=== PATIENT | female | born 1955 | race American Indian/Alaskan Native ===

== ENCOUNTER 2021-04-25 13:04 | Inpatient (IN) | payer MEDICARE ==
--- NOTE | 2021-04-25 18:21 | XRay Report ---
CHEST 1 VIEW INDICATION / CLINICAL INFORMATION: sob...Pt. arrived EMS from dialysis for Htn. Would not dialyze her due to BP. COMPARISON: None available. FINDINGS: SUPPORT DEVICES: None. HEART / MEDIASTINUM: Cardiac silhouette size is upper limits of normal to mildly enlarged. LUNGS / PLEURA: There is mild pulmonary vascular congestion without overt interstitial pulmonary jonatan a. There is mild pulmonary opacity in both bases, nonspecific. It is unclear if this is atelectasis o r underlying pulmonary opacities. No pleural effusion. No pneumothorax. ADDITIONAL FINDINGS: No significant additional findings. IMPRESSION: 1. Pulmonary vascular congestion is present, without sharif interstitial pulmonary edema. 2. Mild bibasilar parenchymal disease, nonspecific with differential diagnosis of atelectasis versus pneumonia. Please correlate clinically. Signer Name: Harmony Chen MD Signed: 04/25/2021 6:17 PM Workstation Name: [id number]
[2021-04-25 18:28] LABS: Eosinophils # (Auto) 0.1 K/mm3 (0.0-0.4); Eosinophils % (Auto) 1.7 % (0.0-4.3); Hematocrit 34.7 % (30.3-42.9); Hemoglobin 11.4 gm/dl (10.1-14.3); Lymphocytes # (Auto) 1.7 K/mm3 (1.2-5.4); Lymphocytes % (Auto) 30.3 % (13.4-35.0); Mean Corpuscular HGB Conc 33 % (30-34); Mean Corpuscular Volume 100 fl (79-97); Monocytes # (Auto) 0.5 K/mm3 (0.0-0.8); Monocytes % (Auto) 8.8 % (0.0-7.3); Platelet Count 155 K/mm3 (140-440); Red Blood Count 3.47 M/mm3 (3.65-5.03); Red Cell Distribution Width 12.4 % (13.2-15.2)
[2021-04-25 18:33] LABS: Calcium 9.5 mg/dL (8.4-10.2)
[2021-04-25] MEDS ORDERED: cloNIDine 0.2 MG TAB PO ONE (19:06)
--- NOTE | 2021-04-25 19:08 | Emergency Department Report ---
ED General Adult HPI - General Chief complaint: High BP Stated complaint: HIGH BLOOD PRESSURE Time Seen by Provider: 04/25/21 17:14 Source: patient Mode of arrival: Stretcher Limitations: No Limitations - History of Present Illness Initial comments: 66-year-old female, history of diabetes, ESRD, hypertension, bipolar, schizophrenia, blindness, presents to ED with elevated blood pressure. Patient was sent to ED from dialysis because her blood pressure was too high to be dialyzed. Patient denies any difficulty breathing. Patient is a somewhat poor historian. Seems to be slightly confused, stating she was dialyzed on yesterday. Patient is on Saturday//Saturday dialysis schedule, which will be patient was likely last dialyzed 3 days ago on Saturday. Per charge nurse who received report, EMS reported that this is patient's baseline mental status. No previous visits to this hospital. -: unknown Quality: other (Painless) Consistency: constant Improves with: none Worsens with: none Associated Symptoms: denies other symptoms. denies: nausea/vomiting, shortness of breath Treatments Prior to Arrival: none - Related Data Home Medications Medication Instructions Recorded Confirmed Last Taken Atorvastatin Calcium [Lipitor] 80 mg PO BID 04/25/21 04/25/21 Unknown QUEtiapine [SEROquel] 25 mg PO TID 04/25/21 04/25/21 Unknown carvediloL [Coreg] 12.5 mg PO BID 04/25/21 04/25/21 Unknown risperiDONE [RisperDAL] 1 mg PO BID 04/25/21 04/25/21 Unknown traZODone [Desyrel] 50 mg PO QHS 04/25/21 04/25/21 Unknown Allergies Allergy/AdvReac Type Severity Reaction Status Date / Time No Known Allergies Allergy Unverified 04/25/21 19:02 ED Review of Systems ROS: Stated complaint: HIGH BLOOD PRESSURE Other details as noted in HPI Comment: All other systems reviewed and negative Respiratory: denies: shortness of breath Gastrointestinal: denies: nausea, vomiting ED Past Medical Hx - Social History Smoking Status: Never Smoker - Medications Home Medications: Home Medications Medication Instructions Recorded Confirmed Last Taken Type Atorvastatin Calcium [Lipitor] 80 mg PO BID 04/25/21 04/25/21 Unknown History QUEtiapine [SEROquel] 25 mg PO TID 04/25/21 04/25/21 Unknown History carvediloL [Coreg] 12.5 mg PO BID 04/25/21 04/25/21 Unknown History risperiDONE [RisperDAL] 1 mg PO BID 04/25/21 04/25/21 Unknown History traZODone [Desyrel] 50 mg PO QHS 04/25/21 04/25/21 Unknown History ED Physical Exam - General Limitations: No Limitations General appearance: alert, in no apparent distress - Head Head exam: Present: atraumatic, normocephalic - Eye Eye exam: Present: normal appearance, EOMI - ENT ENT exam: Present: mucous membranes moist - Neck Neck exam: Present: normal inspection - Respiratory Respiratory exam: Present: normal lung sounds bilaterally. Absent: respiratory distress - Cardiovascular Cardiovascular Exam: Present: regular rate, normal rhythm - GI/Abdominal GI/Abdominal exam: Present: soft. Absent: distended, tenderness - Extremities Exam Extremities exam: Present: normal inspection - Neurological Exam Neurological exam: Present: alert. Absent: oriented X3 (oriented to slef and place) - Psychiatric Psychiatric exam: Present: normal affect, normal mood - Skin Skin exam: Present: warm, dry, intact, normal color ED Course Vital Signs 04/25/21 04/25/21 04/25/21 17:01 17:50 17:52 Temperature Pulse Rate 70 Respiratory 16 Rate Blood Pressure 204/81 Blood Pressure 216/107 [Right] O2 Sat by Pulse 100 100 99 Oximetry 04/25/21 04/25/21 04/25/21 17:54 18:00 18:59 Temperature 97.8 F Pulse Rate Respiratory Rate Blood Pressure 188/78 Blood Pressure [Right] O2 Sat by Pulse 100 100 Oximetry 04/25/21 04/25/21 04/25/21 20:00 20:50 22:00 Temperature Pulse Rate 74 69 Respiratory 12 Rate Blood Pressure 221/94 230/98 181/86 Blood Pressure [Right] O2 Sat by Pulse 99 99 Oximetry 04/26/21 00:00 Temperature Pulse Rate Respiratory Rate Blood Pressure 162/79 Blood Pressure [Right] O2 Sat by Pulse 100 Oximetry - Reevaluation(s) Reevaluation #1: 04/25/21 20:58 Spoke with patient's daughter, Gladis Power ([phone]). States pt takes trazodone, quetiapine, risperidone, atorvastatin, and carvedilol. Will give a dose of trazodone at this time as patient is slightly agitated. - Consultations Consultation #1: 04/25/21 19:[address] Vasquez, corporate compliance manager. States no need to treat K of 5.5, will dialyze patient in the morning. ED Medical Decision Making - Lab Data Result diagrams: 04/25/21 17:41 04/25/21 17:41 - Radiology Data Radiology results: report reviewed, image reviewed - Medical Decision Making 66-year-old female presents from dialysis center for elevated blood pressure. States they are unable to dialyze patient. Patient given clonidine here in the ED. O2 sats are normal, patient is in no respiratory distress. Labs show mild elevation of potassium at 5.5. I spoke to corporate compliance manager, who does not advise treating this mild hyperkalemia. Patient will be dialyzed in the morning. She will be admitted by hospitalist, Dr. Javed, for further management. Critical care attestation.: If time is entered above; I have spent that time in minutes in the direct care of this critically ill patient, excluding procedure time. ED Disposition Clinical Impression: Uncontrolled hypertension, Hyperkalemia, ESRD needing dialysis Disposition: OP ADMIT IP TO THIS HOSP Is pt being admited?: Yes Condition: Stable Time of Disposition: 19:21
[2021-04-25] MEDS ORDERED: ALBUTEROL 2.5 MG/3 ML NEBU IH PRN (19:55)
[2021-04-25] MEDS ORDERED: oxyCODONE /ACETAMINOPHEN 5-325MG TAB PO PRN (19:55)
[2021-04-25] MEDS ORDERED: ONDANSETRON 4 MG/2 ML INJ IV PRN (19:55)
[2021-04-25] MEDS ORDERED: HYDROmorphone 1 MG/1 ML INJ IV PRN (19:55)
[2021-04-25] MEDS ORDERED: ACETAMINOPHEN 325 MG TAB PO PRN (19:55)
--- NOTE | 2021-04-25 19:57 | History and Physical Report ---
History of Present Illness Chief complaint: I need dialysis History of present illness: 66 YO Female with DM, HTN, Bipolar Disorder, Schizophrenia, ESRD on HD (T,R,Sa) presents to ED for evaluation. Patient presents to ED for her routine scheduled dialysis today. Patient was unable to receive dialysis due to elevated blood pressure. EMS was notified and upon arrival the patient was found to be in distress and subsequently transported to [facility] for further care and evaluation of the aforementioned symptoms. The patient was seen and evaluated in the emergency department. All lab and imaging studies reviewed. Patient found to have end-stage renal disease in need of dialysis, accelerated hypertension. Patient treated with antihypertensive therapy. Nephrology team consulted in ED for urgent dialysis. Patient denies fever, chills, chest pain, palpitation, productive cough, skin rash, recent ill contacts, known exposure to COVID-19. No prior admission for review. No medication listed at time of admission for reconciliation. Advanced care planning conducted in ED. Past History Past Medical History: ESRD, hypertension Past Surgical History: Other (Dialysis access) Social history: single. denies: smoking, alcohol abuse, prescription drug abuse Family history: hypertension Medications and Allergies Allergies Allergy/AdvReac Type Severity Reaction Status Date / Time No Known Allergies Allergy Unverified 04/25/21 19:02 Home Medications Medication Instructions Recorded Confirmed Last Taken Type Atorvastatin Calcium [Lipitor] 80 mg PO BID 04/25/21 04/25/21 Unknown History QUEtiapine [SEROquel] 25 mg PO TID 04/25/21 04/25/21 Unknown History carvediloL [Coreg] 12.5 mg PO BID 04/25/21 04/25/21 Unknown History risperiDONE [RisperDAL] 1 mg PO BID 04/25/21 04/25/21 Unknown History traZODone [Desyrel] 50 mg PO QHS 04/25/21 04/25/21 Unknown History Active Meds: Active Medications Acetaminophen (Acetaminophen 325 Mg Tab) 650 mg PO Q4H PRN PRN Reason: Pain MILD(1-3)/Fever >100.5/LARSEN Albuterol (Albuterol 2.5 Mg/3 Ml Nebu) 2.5 mg IH Q4HRT PRN PRN Reason: Shortness Of Breath Hydromorphone HCl (Hydromorphone 1 Mg/1 Ml Inj) 0.5 mg IV Q12H PRN PRN Reason: Pain , Severe (7-10) Ondansetron HCl (Ondansetron 4 Mg/2 Ml Inj) 4 mg IV Q8H PRN PRN Reason: Nausea And Vomiting Oxycodone/Acetaminophen (Oxycodone /Acetaminophen 5-325mg Tab) 1 tab PO Q12H PRN PRN Reason: Pain, Moderate (4-6) Sodium Chloride (Sodium Chloride 0.9% 10 Ml Flush Syringe) 10 ml IV BID LIZ Sodium Chloride (Sodium Chloride 0.9% 10 Ml Flush Syringe) 10 ml IV PRN PRN PRN Reason: LINE FLUSH Review of Systems Constitutional: no weight loss Ears, nose, mouth and throat: no ear pain, no decreased hearing, no nasal discharge Breasts: no change in shape, no swelling Cardiovascular: no chest pain, no palpitations, no edema, no syncope Respiratory: no cough, no cough with sputum, no excessive sputum, no hemoptysis Gastrointestinal: no nausea, no vomiting, no diarrhea, no constipation Genitourinary Female: no pelvic pain, no flank pain, no dysuria, no urinary frequency Rectal: no pain, no incontinence, no bleeding Musculoskeletal: no neck stiffness, no arm numbness/tingling, no shooting leg pain Integumentary: no rash, no pruritis, no redness, no sores, no wounds, no boils Neurological: no transient paralysis, no paralysis, no weakness, no parathesias, no seizures Psychiatric: no memory loss, no change in sleep habits, no sleep disturbances, no hypersomnia, no change in appetite Endocrine: no cold intolerance, no polyphagia, no polydipsia, no polyuria, no excessive sweating Hematologic/Lymphatic: no easy bruising, no easy bleeding Allergic/Immunologic: no urticaria Exam - Constitutional Vitals: Temp Pulse Resp BP Pulse Ox 97.8 F 70 16 188/78 100 04/25/21 18:59 04/25/21 17:01 04/25/21 17:01 04/25/21 17:54 04/25/21 18:00 General appearance: Present: mild distress - EENT Eyes: Present: PERRL ENT: hearing intact, clear oral mucosa - Neck Neck: Present: supple, normal ROM - Respiratory Respiratory effort: normal Respiratory: bilateral: CTA - Cardiovascular Heart Sounds: Present: S1 & S2. Absent: rub, click - Extremities Extremities: pulses symmetrical, No edema Peripheral Pulses: within normal limits - Abdominal General gastrointestinal: Present: soft, non-tender, non-distended, normal bowel sounds Female genitourinary: Present: normal - Integumentary Integumentary: Present: clear, warm, dry - Musculoskeletal Musculoskeletal: gait normal, strength equal bilaterally - Psychiatric Psychiatric: appropriate mood/affect, intact judgment & insight - Neurologic Neurologic: CNII-XII intact, moves all extremities Results - Labs CBC & Chem 7: 04/25/21 17:41 04/25/21 17:41 Labs: Abnormal lab results 04/25/21 04/25/21 Range/Units 17:41 17:41 RBC 3.47 L (3.65-5.03) M/mm3 MCV 100 H (79-97) fl MCH 33 H (28-32) pg RDW 12.4 L (13.2-15.2) % [place] % (Auto) 8.8 H (0.0-7.3) % Potassium 5.5 H (3.6-5.0) mmol/L BUN 60 H (7-17) mg/dL Creatinine 8.0 H (0.6-1.2) mg/dL Assessment and Plan - Patient Problems (1) ESRD needing dialysis Current Visit: Yes Status: Acute Plan to address problem: Nephrology team consulted in ED, strict I/O, monitor urine output every shift, avoid nephrotoxic agents. (2) Uncontrolled hypertension Current Visit: Yes Status: Acute Plan to address problem: Monitor blood pressure every shift, continue medical management, resume prehospital antihypertensive therapy, urgent dialysis. (3) DVT prophylaxis Current Visit: Yes Status: Acute Plan to address problem: SCD to bilateral lower extremities while in bed, patient is ambulatory (4) Advance care planning Current Visit: Yes Status: Acute Plan to address problem: Disease education conducted, care plan discussed, diagnosis discussed, prognosis discussed, patient is full code, patient knowledges understanding and agreement with care plan, +30 minutes.
[2021-04-25] MEDS ORDERED: SODIUM CHLORIDE 0.9% 100 ML IV PRN (21:38)
[2021-04-25] MEDS ORDERED: traZODone 50 MG TAB PO SCH (22:00)
[2021-04-26] MEDS ORDERED: QUEtiapine 25 MG TAB PO ONE (00:51)
[2021-04-26] MEDS ORDERED: hydrALAZINE 20 MG/1 ML INJ IV ONE (04:52)
[2021-04-26 06:07] LABS: Calcium 9.5 mg/dL (8.4-10.2)
--- NOTE | 2021-04-26 08:31 | Progress Note ---
Assessment and Plan - Patient Problems (1) Advance care planning Current Visit: Yes Status: Acute (2) ESRD needing dialysis Current Visit: Yes Status: Acute Plan to address problem: Patient actively receiving hemodialysis at present. Blood pressure much better controlled 140/74. I did start patient back on amlodipine Coreg and losartan. -Appreciate nephrology consultation for emergent hemodialysis. -Anticipated discharge in a.m. (3) Hyperkalemia Current Visit: Yes Status: Acute Plan to address problem: We will follow-up potassium electrolytes hyperkalemia should be corrected after hemodialysis. May require an additional hemodialysis a.m. (4) Uncontrolled hypertension Current Visit: Yes Status: Acute Plan to address problem: Uncontrolled hypertension secondary to noncompliance with hemodialysis. Patient much better during hemodialysis with blood pressure expected to continue to improve. I have added patient antihypertensives back. Amlodipine Coreg hydralazine and losartan. Subjective Date of service: 04/26/21 Principal diagnosis: Accelerated hypertension, end-stage renal disease Interval history: 66-year-old with a history of diabetes hypertension bipolar disorder schizophrenia end-stage renal disease on dialysis presents to ED after missing dialysis. Patient here for routine hemodialysis management. Was found to have hypertensive emergency with blood pressure of 212/97. She was taken to emergent dialysis treated by Dr. Thomason. Patient at present states she feels better less short of breath no chest pain no fever chills no nausea vomiting. Objective - Constitutional Vitals: Vital Signs - 12hr 04/25/21 04/25/21 04/26/21 20:50 22:00 00:00 Temperature Pulse Rate 74 69 Respiratory 12 Rate Blood Pressure 230/98 181/86 162/79 O2 Sat by Pulse 99 100 Oximetry 04/26/21 04/26/21 04/26/21 00:04 00:09 01:01 Temperature Pulse Rate Respiratory Rate Blood Pressure 162/79 168/73 O2 Sat by Pulse 100 99 100 Oximetry 04/26/21 04/26/21 04/26/21 02:01 03:40 04:44 Temperature 97.8 F Pulse Rate 74 74 Respiratory 18 Rate Blood Pressure 157/99 212/94 O2 Sat by Pulse 100 98 Oximetry 04/26/21 05:10 Temperature Pulse Rate 74 Respiratory Rate Blood Pressure 212/94 O2 Sat by Pulse Oximetry General appearance: Present: no acute distress, well-nourished - EENT Eyes: PERRL, EOM intact ENT: hearing intact, clear oral mucosa Ears: bilateral: normal - Neck Neck: supple, normal ROM - Respiratory Respiratory effort: normal Respiratory: bilateral: CTA - Breasts Breasts: normal - Cardiovascular Rhythm: regular Heart Sounds: Present: S1 & S2. Absent: gallop, rub Extremities: pulses intact, No edema, normal color, Full ROM - Gastrointestinal General gastrointestinal: Present: soft, non-tender, non-distended, normal bowel sounds - Genitourinary Female genitourinary: normal - Integumentary Integumentary: clear, warm, dry - Musculoskeletal Musculoskeletal: 1, strength equal bilaterally - Neurologic Neurologic: moves all extremities - Psychiatric Psychiatric: memory intact, appropriate mood/affect, intact judgment & insight - Labs CBC & Chem 7: 04/25/21 17:41 04/26/21 05:10 Labs: Abnormal lab results 04/25/21 04/25/21 04/26/21 Range/Units 17:41 17:41 05:10 RBC 3.47 L (3.65-5.03) M/mm3 MCV 100 H (79-97) fl MCH 33 H (28-32) pg RDW 12.4 L (13.2-15.2) % [place] % (Auto) 8.8 H (0.0-7.3) % Potassium 5.5 H 5.4 H (3.6-5.0) mmol/L BUN 60 H 65 H (7-17) mg/dL Creatinine 8.0 H 8.5 H (0.6-1.2) mg/dL Glucose 121 H (65-100) mg/dL
--- NOTE | 2021-04-26 09:29 | Consultation ---
History of Present Illness - Reason for Consult Consult date: 04/26/21 end stage renal disease Requesting physician: TESSA SEQUEIRA - History of Present Illness 66 YO Female with DM, HTN, Bipolar Disorder, Schizophrenia, ESRD on HD (T,R,Sa) presents to ED for evaluation. Patient presents to ED for her routine scheduled dialysis yesterday . Patient was unable to receive dialysis due to elevated blood pressure. EMS was notified and upon arrival the patient was found to be in distress and subsequently transported to [facility] for further care and evaluation of the aforementioned symptoms. Patient is currently somewhat confused. Unable to get any additional data from her. Information obtained from patient's current chart. She undergoes dialysis on TTS schedule at [facility] According to ER notes, Patient denies fever, chills, chest pain, palpitation, productive cough, skin rash, recent ill contacts, known exposure to COVID-19. No prior admission for review. No medication listed at time of admission for reconciliation. Advanced care planning conducted in ED. Past History Past Medical History: ESRD, hypertension Past Surgical History: Other (Dialysis access) Social history: single. denies: smoking, alcohol abuse, prescription drug abuse Family history: hypertension Medications and Allergies Allergies Allergy/AdvReac Type Severity Reaction Status Date / Time No Known Allergies Allergy Unverified 04/25/21 19:02 Home Medications Medication Instructions Recorded Confirmed Last Taken Type Atorvastatin Calcium [Lipitor] 80 mg PO BID 04/25/21 04/25/21 Unknown History QUEtiapine [SEROquel] 25 mg PO TID 04/25/21 04/25/21 Unknown History carvediloL [Coreg] 12.5 mg PO BID 04/25/21 04/25/21 Unknown History risperiDONE [RisperDAL] 1 mg PO BID 04/25/21 04/25/21 Unknown History traZODone [Desyrel] 50 mg PO QHS 04/25/21 04/25/21 Unknown History Active Meds: Active Medications Acetaminophen (Acetaminophen 325 Mg Tab) 650 mg PO Q4H PRN PRN Reason: Pain MILD(1-3)/Fever >100.5/LARSEN Albuterol (Albuterol 2.5 Mg/3 Ml Nebu) 2.5 mg IH Q4HRT PRN PRN Reason: Shortness Of Breath Carvedilol (Carvedilol 12.5 Mg Tab) 12.5 mg PO BID [facility] Hydralazine HCl (Hydralazine 20 Mg/1 Ml Inj) 10 mg IV Q4HR PRN PRN Reason: Hypertension Hydromorphone HCl (Hydromorphone 1 Mg/1 Ml Inj) 0.5 mg IV Q12H PRN PRN Reason: Pain , Severe (7-10) Sodium Chloride (Nacl 0.9%) 100 mls @ 999 mls/hr IV VERO PRN PRN Reason: Hypotension Ondansetron HCl (Ondansetron 4 Mg/2 Ml Inj) 4 mg IV Q8H PRN PRN Reason: Nausea And Vomiting Oxycodone/Acetaminophen (Oxycodone /Acetaminophen 5-325mg Tab) 1 tab PO Q12H PRN PRN Reason: Pain, Moderate (4-6) Quetiapine Fumarate (Quetiapine 25 Mg Tab) 25 mg PO TID [facility] Risperidone (Risperidone 1 Mg Tab) 1 mg PO BID [facility] Sodium Chloride (Sodium Chloride 0.9% 10 Ml Flush Syringe) 10 ml IV BID [facility] Last Admin: 04/25/21 22:28 Dose: 10 ml Documented by: Sodium Chloride (Sodium Chloride 0.9% 10 Ml Flush Syringe) 10 ml IV PRN PRN PRN Reason: LINE FLUSH Trazodone HCl (Trazodone 50 Mg Tab) 50 mg PO QHS [facility] Review of Systems ROS unobtainable: due to mental status Exam - Vital Signs Vital signs: Vital Signs Pulse Resp BP Pulse Ox 70 16 216/107 100 04/25/21 17:01 04/25/21 17:01 04/25/21 17:01 04/25/21 17:01 - General Appearance General appearance: well-developed, well-nourished, appears stated age EENT: PERRL, mucous membranes moist Neck: Present: neck supple Respiratory: Clear to Ascultation Heart: regular, normal heart rate, S1S2, no murmurs Gastrointestinal: Present: normal, normoactive bowel sounds Integumentary: no rash, other (AV graft in her left upper arm. Good bruit and thrill.) Results - Lab Results 04/25/21 17:41 04/26/21 05:10 Most recent lab results Calcium 9.5 mg/dL (8.4-10.2) 04/26/21 05:10 Assessment and Plan Impression * End-stage renal disease on maintenance hemodialysis * Hyperkalemia * Accelerated hypertension * Bipolar disorder * Anemia secondary to ESRD Recommendations * Patient is scheduled for hemodialysis treatment for today. Consent has been obtained from family members. Patient had also consented for dialysis previously at the outpatient facility * Hopefully hyperkalemia will be corrected with dialysis * Adjust antihypertensive meds * Hold Epogen for now because of elevated blood pressure * Binders with meals * Adjust diet and meds for ESRD state * Avoid nephrotoxins * No IV, BP or venipuncture in her access arm * Thank you very much for the consultation. Shall follow along with you
[2021-04-26] MEDS ORDERED: hydrALAZINE 20 MG/1 ML INJ IV PRN (10:00)
[2021-04-26 11:07] LABS: Hepatitis B Surface Antigen Non-Reactive (Negative); Hepatitis C Virus Antibody Non-Reactive (NonReactive)
[2021-04-26] MEDS: QUEtiapine 25 MG TAB PO SCH ×2 (14:01→21:17)
[2021-04-26] MEDS: amLODIPine 5 MG TAB PO SCH (14:01)
[2021-04-26] MEDS: LOSARTAN 50 MG TAB PO SCH (14:01)
[2021-04-26] MEDS: carvediloL 12.5 MG TAB PO SCH ×2 (14:01→21:17)
[2021-04-26] MEDS: risperiDONE 1 MG TAB PO SCH ×2 (14:01→21:17)
[2021-04-26] MEDS: traZODone 50 MG TAB PO SCH (21:17)
[2021-04-27] MEDS: QUEtiapine 25 MG TAB PO SCH ×3 (09:07→20:42)
[2021-04-27] MEDS: risperiDONE 1 MG TAB PO SCH ×2 (09:07→21:16)
--- NOTE | 2021-04-27 09:17 | Progress Note ---
Assessment and Plan Impression * End-stage renal disease on maintenance hemodialysis * Hyperkalemia * Accelerated hypertension * Bipolar disorder * Anemia secondary to ESRD Recommendations * Patient had uneventful hemodialysis yesterday. * Continue dialysis on MWF schedule for now. * Hopefully hyperkalemia will be corrected with dialysis * Her blood pressure is under much better control this morning. Continue current antihypertensive medications * Epogen per protocol * Binders with meals * Adjust diet and meds for ESRD state * Avoid nephrotoxins * No IV, BP or venipuncture in her access arm Subjective Date of service: 04/27/21 Principal diagnosis: Accelerated hypertension, end-stage renal disease Interval history: Patient is comfortable. Awake and alert. Somewhat confused. Uneventful hemodialysis yesterday. Denies any shortness of breath Objective - Vital Signs Vital signs: Vital Signs - 12hr 04/26/21 04/27/21 04/27/21 23:40 03:00 04:00 Temperature Pulse Rate 63 Pulse Rate [ Apical] Pulse Rate [ From Monitor] Respiratory 18 Rate Blood Pressure O2 Sat by Pulse 100 98 Oximetry 04/27/21 04/27/21 04/27/21 04:38 04:41 04:58 Temperature 97.4 F L Pulse Rate 63 72 Pulse Rate [ Apical] Pulse Rate [ From Monitor] Respiratory Rate Blood Pressure 178/75 182/76 O2 Sat by Pulse 98 100 Oximetry 04/27/21 04/27/21 07:54 08:34 Temperature 98.0 F Pulse Rate Pulse Rate [ 67 Apical] Pulse Rate [ 67 From Monitor] Respiratory 16 19 Rate Blood Pressure 153/81 O2 Sat by Pulse 98 Oximetry - General Appearance General appearance: well-developed, well-nourished, appears stated age EENT: PERRL, mucous membranes moist Neck: no JVD, no thyromegaly, no carotid bruit, supple Respiratory: Present: Clear to Ascultation Cardiology: regular, normal heart rate, S1S2, no murmurs Gastrointestinal: normal, normoactive bowel sounds Integumentary: no rash, other (No edema. AV graft left upper extremity. Good bruit and thrill.) - Lab 04/25/21 17:41 04/26/21 05:10 Most recent lab results Calcium 9.5 mg/dL (8.4-10.2) 04/26/21 05:10 Medications & Allergies - Medications Allergies/Adverse Reactions: Allergies No Known Allergies Allergy (Unverified 04/25/21 19:02) Home Medications: Home Medications Medication Instructions Recorded Confirmed Last Taken Type Atorvastatin Calcium [Lipitor] 80 mg PO BID 04/25/21 04/25/21 Unknown History QUEtiapine [SEROquel] 25 mg PO TID 04/25/21 04/25/21 Unknown History carvediloL [Coreg] 12.5 mg PO BID 04/25/21 04/25/21 Unknown History risperiDONE [RisperDAL] 1 mg PO BID 04/25/21 04/25/21 Unknown History traZODone [Desyrel] 50 mg PO QHS 04/25/21 04/25/21 Unknown History Active Medications: Generic Name Dose Route Start Last Admin Trade Name Freq PRN Reason Stop Dose Admin Acetaminophen 650 mg 04/25/21 19:55 Acetaminophen 325 Mg Tab PO Q4H PRN Pain MILD(1-3)/Fever >100.5/LARSEN Albuterol 2.5 mg 04/25/21 19:55 Albuterol 2.5 Mg/3 Ml Nebu IH Q4HRT PRN Shortness Of Breath Amlodipine Besylate 5 mg 04/26/21 11:00 04/26/21 14:01 Amlodipine 5 Mg Tab PO 5 mg QDAY LIZ Administration Carvedilol 12.5 mg 04/26/21 10:00 04/26/21 21:17 Carvedilol 12.5 Mg Tab PO 12.5 mg BID LIZ Administration Hydralazine HCl 10 mg 04/26/21 10:00 Hydralazine 20 Mg/1 Ml Inj IV Q4HR PRN Hypertension Hydromorphone HCl 0.5 mg 04/25/21 19:55 Hydromorphone 1 Mg/1 Ml Inj IV Q12H PRN Pain , Severe (7-10) Sodium Chloride 100 mls @ 999 mls/hr 04/25/21 21:38 Nacl 0.9% IV VERO PRN Hypotension Losartan Potassium 50 mg 04/26/21 11:00 04/26/21 14:01 Losartan 50 Mg Tab PO 50 mg QDAY LIZ Administration Ondansetron HCl 4 mg 04/25/21 19:55 Ondansetron 4 Mg/2 Ml Inj IV Q8H PRN Nausea And Vomiting Oxycodone/Acetaminophen 1 tab 04/25/21 19:55 Oxycodone /Acetaminophen 5-325mg Tab PO Q12H PRN Pain, Moderate (4-6) Quetiapine Fumarate 25 mg 04/26/21 14:00 04/27/21 09:07 Quetiapine 25 Mg Tab PO 25 mg TID LIZ Administration Risperidone 1 mg 04/26/21 10:00 04/27/21 09:07 Risperidone 1 Mg Tab PO 1 mg BID LIZ Administration Sodium Chloride 10 ml 04/25/21 22:00 04/27/21 09:08 Sodium Chloride 0.9% 10 Ml Flush Syringe IV 10 ml BID LIZ Administration Sodium Chloride 10 ml 04/25/21 19:55 Sodium Chloride 0.9% 10 Ml Flush Syringe IV PRN PRN LINE FLUSH Trazodone HCl 50 mg 04/26/21 22:00 04/26/21 21:17 Trazodone 50 Mg Tab PO 50 mg QHS LIZ Administration
[2021-04-27] MEDS ORDERED: SODIUM CHLORIDE 0.9% 100 ML IV PRN (11:00)
--- NOTE | 2021-04-27 11:01 | Discharge Summary ---
Providers - Providers Date of Admission: 04/26/21 17:07 Date of discharge: 04/27/21 Attending physician: STACEY DILLON 04/25/21 19:02 Consult to Physician [CONS] Stat Comment: Consulting Provider: HOWARD EDMOND Physician Instructions: Reason For Exam: esrd needing dialysis Primary care physician: PARKS RECREATION COORDINATOR Hospitalization Reason for admission: Missed hemodialysis, hyperkalemia Condition: Stable Hospital course: 66 YO Female with DM, HTN, Bipolar Disorder, Schizophrenia, ESRD on HD (T,R,Sa) presented to ED for evaluation after missed hemodialysis. Patient was unable to receive dialysis due to elevated blood pressure. EMS was notified and upon arrival the patient was found to be in distress and subsequently transported to [facility] for further care and evaluation of the aforementioned symptoms. The patient was admitted with diagnosis of ESRD with missed hemodialysis, hyperkalemia and accelerated hypertension. Patient's mental status stabilized after hemodialysis. Therefore, patient likely had metabolic encephalopathy. Blood pressure also stabilized with reinitiation of her home antihypertensive medications. Patient is felt to have received maximal hospital benefit and will be discharged home. Dedicated discharge time 35 minutes Disposition: DC-01 TO HOME OR SELFCARE Final Discharge Diagnosis (Prints w/discharge instructions): Metabolic encephalopathy, ESRD, accelerated hypertension, hyperkalemia Core Measure Documentation - Palliative Care Palliative Care/ Comfort Measures: Not Applicable - Core Measures Any of the following diagnoses?: none Exam - Constitutional Vitals: Temp Pulse Resp BP Pulse Ox 98.0 F 67 19 153/81 98 04/27/21 07:54 04/27/21 08:34 04/27/21 08:34 04/27/21 07:54 04/27/21 08:34 General appearance: Present: no acute distress, well-nourished - EENT Eyes: Present: PERRL ENT: hearing intact, clear oral mucosa - Neck Neck: Present: supple, normal ROM - Respiratory Respiratory effort: normal Respiratory: bilateral: CTA - Cardiovascular Heart Sounds: Present: S1 & S2. Absent: rub, click - Extremities Extremities: pulses symmetrical, No edema Peripheral Pulses: within normal limits - Abdominal General gastrointestinal: Present: soft, non-tender, non-distended, normal bowel sounds Female genitourinary: Present: normal - Integumentary Integumentary: Present: clear, warm, dry - Musculoskeletal Musculoskeletal: gait normal, strength equal bilaterally - Psychiatric Psychiatric: appropriate mood/affect, intact judgment & insight - Neurologic Neurologic: CNII-XII intact, moves all extremities Plan Activity: advance as tolerated Weight Bearing Status: Weight Bear as Tolerated Diet: renal Follow up with: PRIMARY CARE, [Primary Care Provider] - 3-5 Days Prescriptions: amLODIPine 5 mg PO QDAY #30 tablet carvediloL [Coreg] 12.5 mg PO BID #60 Losartan [Cozaar] 50 mg PO QDAY #30 tablet risperiDONE [RisperDAL] 1 mg PO BID #60 QUEtiapine [SEROquel] 25 mg PO TID #90
[2021-04-27] MEDS: carvediloL 12.5 MG TAB PO SCH ×2 (11:05→21:18)
[2021-04-27] MEDS: amLODIPine 5 MG TAB PO SCH (11:05)
[2021-04-27] MEDS: LOSARTAN 50 MG TAB PO SCH (11:05)
[2021-04-27] MEDS: traZODone 50 MG TAB PO SCH (21:23)
[2021-04-27 21:46] VITALS: BP 175/81
== END 2021-04-27 23:35 | disposition home health service (06) | DRG 640 ==
LOC: ED 13:04 → 3A 19:22 → 4A 04-26 01:36 → OBSVTOIN 04-26 17:07
PROVIDERS: ADMIT Internal Medicine; ATTEND Hospitalist
PROC: 5A1D70Z Performance of Urinary Filtration, Intermittent, Less than 6 Hours Per Day (ICD-10-PCS; principal; 2021-04-26)
DX: E87.5 Hyperkalemia (principal); N18.6 End stage renal disease; G93.41 Metabolic encephalopathy; I12.0 Hypertensive chronic kidney disease with stage 5 chronic kidney disease or end stage renal disease; Z99.2 Dependence on renal dialysis; F20.9 Schizophrenia, unspecified; F31.9 Bipolar disorder, unspecified; H54.7 Unspecified visual loss; Z82.49 Family history of ischemic heart disease and other diseases of the circulatory system; D63.1 Anemia in chronic kidney disease
CPT/HCPCS: 36415; 71045; 80048; 80074; 82962; 85025; G0378; J0360

== ENCOUNTER 2021-10-12 14:03 | Emergency (ER) | payer MEDICARE ==
[2021-10-12 17:10] LABS: Hematocrit 29.9 % (30.3-42.9); Hemoglobin 9.4 gm/dl (10.1-14.3); Mean Corpuscular HGB Conc 31 % (30-34); Mean Corpuscular Volume 98 fl (79-97); Platelet Count 189 K/mm3 (140-440); Red Blood Count 3.07 M/mm3 (3.65-5.03); Red Cell Distribution Width 15.8 % (13.2-15.2)
--- NOTE | 2021-10-12 17:42 | Emergency Department Report ---
ED Medical Clearance HPI - General Chief complaint: Medical Clearance Stated complaint: BLEEDING AT DIALYSIS SITE Time Seen by Provider: 10/12/21 15:52 Source: patient, EMS ( EMS documentation not available at time of chart dictation ), RN notes reviewed, old records reviewed Mode of arrival: Stretcher Limitations: Physical Limitation - History of Present Illness Initial comments: The patient was evaluated in the emergency department for symptoms described in the history of present illness. He/she was evaluated in the context of the global COVID-19 pandemic, which necessitated consideration that the patient might be at risk for infection with the virus that causes COVID-19. Institutional protocols and algorithms that pertain to the evaluation of patients at risk for COVID-19 are in a state of rapid change based on information released by regulatory bodies including the CDC and federal and state organizations. These policies and algorithms were followed during the patient's care in the emergency department. Please note that these policies, procedures and recommendations changed on a rapid basis. Patient is a 66-year-old female, who has a history of end-stage renal disease on hemodialysis and who is blind, who was at hemodialysis today, and reportedly pulled out dialysis access from her left upper extremity fistula, and is referre d to the emergency room for evaluation. EMS reports that the patient had some bleeding, which is now resolved with a dressing and pressure. The patient denies all complaints and physical pain at this time. She is asking to be fed. She was given a peanut butter and jelly sandwich, which she states made her feel improved. -: This afternoon Reason for Medical Clearance: other Place: other (Hemodialysis) Alledged Intoxication: No Traumatic Symptoms: other (Patient denies traumatic injury) Associated Symptoms: other (Patient denies) Home medications: Home Medications Medication Instructions Recorded Confirmed Last Taken Atorvastatin Calcium [Lipitor] 80 mg PO BID 04/25/21 07/20/21 07/18/21 traZODone [Desyrel] 50 mg PO QHS 04/25/21 07/20/21 07/18/21 Previous Rx's Medication Instructions Recorded Last Taken Type Losartan [Cozaar] 50 mg PO QDAY #30 tablet 04/27/21 07/18/21 Rx QUEtiapine [SEROquel] 25 mg PO TID #90 04/27/21 07/18/21 Rx risperiDONE [RisperDAL] 1 mg PO BID #60 04/27/21 07/18/21 Rx Epoetin Warren-Epbx 20,000 [Retacrit] 20,000 unit SUB-Q VERO vial 07/25/21 Unknown Rx Losartan [Cozaar] 50 mg PO QDAY tablet 07/25/21 Unknown Rx Allergies/Adverse reactions: Allergies Allergy/AdvReac Type Severity Reaction Status Date / Time No Known Allergies Allergy Unverified 04/25/21 19:02 ED Review of Systems ROS: Stated complaint: BLEEDING AT DIALYSIS SITE Other details as noted in HPI Constitutional: denies: fever Eyes: denies: eye discharge ENT: denies: epistaxis Respiratory: denies: cough Cardiovascular: denies: chest pain Gastrointestinal: denies: abdominal pain, hematemesis, melena, hematochezia Genitourinary: denies: dysuria Neurological: denies: weakness Hematological/Lymphatic: denies: easy bleeding ED Past Medical Hx - Past Medical History Previous Medical History?: Yes Hx Hypertension: Yes Hx Congestive Heart Failure: No Hx Diabetes: Yes Hx Renal Disease: Yes Hx Psychiatric Treatment: Yes (bipolar, schizophrenia) Hx Asthma: No Hx COPD: No Hx Dementia: Yes Additional medical history: blindness - Surgical History Additional Surgical History: fistula L arm - Social History Smoking Status: Never Smoker - Medications Home Medications: Home Medications Medication Instructions Recorded Confirmed Last Taken Type Atorvastatin Calcium [Lipitor] 80 mg PO BID 04/25/21 07/20/21 07/18/21 History traZODone [Desyrel] 50 mg PO QHS 04/25/21 07/20/21 07/18/21 History Losartan [Cozaar] 50 mg PO QDAY #30 tablet 04/27/21 07/20/21 07/18/21 Rx QUEtiapine [SEROquel] 25 mg PO TID #90 04/27/21 07/20/21 07/18/21 Rx risperiDONE [RisperDAL] 1 mg PO BID #60 04/27/21 07/20/21 07/18/21 Rx Epoetin Warren-Epbx 20,000 [Retacrit] 20,000 unit SUB-Q VERO vial 07/25/21 Unknown Rx Losartan [Cozaar] 50 mg PO QDAY tablet 07/25/21 Unknown Rx ED Physical Exam - General Limitations: Physical Limitation, Other (Patient is a poor historian. The patient is blind.) General appearance: alert, in no apparent distress - Head Head exam: Present: atraumatic, normocephalic - Eye Eye exam: Present: normal appearance, EOMI. Absent: nystagmus - ENT ENT exam: Present: normal exam, normal orophraynx, mucous membranes moist, normal external ear exam - Neck Neck exam: Present: normal inspection, full ROM. Absent: tenderness, meningismus - Respiratory Respiratory exam: Present: normal lung sounds bilaterally. Absent: respiratory distress, wheezes, rales, rhonchi, stridor, decreased breath sounds - Cardiovascular Cardiovascular Exam: Present: regular rate, normal rhythm, normal heart sounds. Absent: bradycardia, tachycardia, irregular rhythm, systolic murmur, diastolic murmur, rubs, gallop - GI/Abdominal GI/Abdominal exam: Present: soft. Absent: distended, tenderness, guarding, rebound, rigid, pulsatile mass - External exam: Present: normal external exam (Chaperoned by Jeanette Tapia) - Extremities Exam Extremities exam: Present: normal inspection (There is a left upper extremity fistula, without redness, pus, streaking or bleeding. Appropriate thrill was appreciated. 2+ femoral pulses noted bilaterally.), full ROM, other (2+ radial and femoral pulses noted bilaterally. There is no long bony tenderness. The muscular compartments are soft. The pelvis is stable.). Absent: tenderness, pedal edema, joint swelling, calf tenderness - Back Exam Back exam: Present: normal inspection, full ROM. Absent: tenderness, CVA tenderness (R), CVA tenderness (L), paraspinal tenderness, vertebral tenderness - Neurological Exam Neurological exam: Present: alert, other (No facial droop. Tongue midline. Extraocular movements intact bilaterally. Facial sensation intact to light touch in V1, V2, V3 distribution bilaterally. 5 and a 5 strength in 4 extremities. Sensation intact to light touch in 4 extremities.) - Psychiatric Psychiatric exam: Present: anxious - Skin Skin exam: Present: warm, dry, intact, normal color. Absent: rash ED Course Vital Signs 10/12/21 10/12/21 10/12/21 14:04 16:09 17:42 Temperature 97.2 F L Pulse Rate 77 64 67 Respiratory 14 18 16 Rate Blood Pressure 180/73 140/83 142/63 [Left] O2 Sat by Pulse 97 100 100 Oximetry - Reevaluation(s) Reevaluation #1: 10/12/21 18:10 Laboratory studies reviewed and appreciated. They appear to be at baseline. Patient in no acute distress. Patient does not appear to have an emergent medical condition present at this time which requires inpatient admission or hospitalization. ED Medical Decision Making - Lab Data Result diagrams: 10/12/21 16:57 10/12/21 16:57 Vital Signs 10/12/21 10/12/21 14:04 16:09 Pulse Rate 77 64 Respiratory 14 18 Rate Blood Pressure 180/73 140/83 [Left] O2 Sat by Pulse 97 100 Oximetry Lab Results 10/12/21 10/12/21 Range/Units 16:47 16:57 WBC 6.9 (4.5-11.0) K/mm3 RBC 3.07 L (3.65-5.03) M/mm3 Hgb 9.4 L (10.1-14.3) gm/dl Hct 29.9 L (30.3-42.9) % MCV 98 H (79-97) fl MCH 31 (28-32) pg MCHC 31 (30-34) % RDW 15.8 H (13.2-15.2) % Plt Count 189 (140-440) K/mm3 POC Glucose 104 (70-105) mg/dL Lab Results 10/12/21 10/12/21 10/12/21 Range/Units 16:47 16:57 16:57 WBC 6.9 (4.5-11.0) K/mm3 RBC 3.07 L (3.65-5.03) M/mm3 Hgb 9.4 L (10.1-14.3) gm/dl Hct 29.9 L (30.3-42.9) % MCV 98 H (79-97) fl MCH 31 (28-32) pg MCHC 31 (30-34) % RDW 15.8 H (13.2-15.2) % Plt Count 189 (140-440) K/mm3 Sodium 148 H (137-145) mmol/L Potassium 3.9 (3.6-5.0) mmol/L Chloride 111.2 H (98-107) mmol/L Carbon Dioxide 25 (22-30) mmol/L Anion Gap 16 mmol/L BUN 35 H (7-17) mg/dL Creatinine 7.7 H (0.6-1.2) mg/dL Estimated GFR 6 ml/min BUN/Creatinine Ratio 5 % Glucose 117 H (65-100) mg/dL POC Glucose 104 (70-105) mg/dL Calcium 9.0 (8.4-10.2) mg/dL - Medical Decision Making Differential diagnosis, including but not limited to: Encounter for medical screening examination, end-stage renal disease on hemodialysis, AV fistula in place Assessment and plan: 66-year-old female, who is afebrile, with reassuring vital signs, temperature 97.2 degrees at this time, who was eating a peanut butter sa [employer] at this time, who is brought to the hospital by emergency medical services for screening evaluation after she pulled out her dialysis access. Left upper extremity fistula is not bleeding. It does not appear to be infected. Her blood pressure is stable. Her physical exam is unremarkable. Laboratory studies pending at this time ED Disposition Clinical Impression: End stage renal disease, AVF (arteriovenous fistula), Dialysis complication Disposition: 03 [facility] FACILITY Is pt being admited?: No Does the pt Need Aspirin: No Condition: Good Instructions: Hemodialysis, Care After Additional Instructions: Please continue current outpatient medications. Continue current outpatient h emodialysis schedule. Please do not remove hemodialysis catheter from AV fistula in the future. Please follow-up with your primary care doctor or services engineer within the next week. Please return to the emergency room right away with new pain, worsened pain, migration of pain, projectile vomiting, change in mental status, confusion, inability tolerate liquid feeds, new, worsened or different symptoms not present on the initial emergency room evaluation Referrals: TANESHA LESTER MD [Staff Physician] - 3-5 Days
[2021-10-13 00:14] VITALS: BP 132/77
== END 2021-10-13 00:22 ==
LOC: ED 14:03
DX: E11.22 Type 2 diabetes mellitus with diabetic chronic kidney disease (principal); I12.9 Hypertensive chronic kidney disease with stage 1 through stage 4 chronic kidney disease, or unspecified chronic kidney disease; N18.6 End stage renal disease; I77.0 Arteriovenous fistula, acquired; T82.838A Hemorrhage due to vascular prosthetic devices, implants and grafts, initial encounter
CPT/HCPCS: 36415; 80048; 82962; 85027; 99284

== ENCOUNTER 2021-11-18 13:38 | Emergency (ER) | payer MEDICARE ==
--- NOTE | 2021-11-18 13:43 | Emergency Department Report ---
Blank Doc - Documentation Documentation: Patient was seen as part of the MSE process. Work-up has been initiated. Ano ther provider will follow up and arrange disposition and complete full documentation. Patient was at dialysis. She developed left-sided chest pain. She was taken off of dialysis 90 minutes early and transported here. Per EMS, the patient has done this off and. The daughter states that the patient likes to do this because she does not want to do a full 3-hour treatment. This cannot be verifie d. Regardless, she is here because of left chest pain. It is just described as "pain." She cannot quantify the pain. She has not noticed any aggravating or alleviating factors. She does not feel short of breath or nauseous. On exam, patient is in no distress. There is tenderness with palpation of the left chest wall but no crepitus. There is an AV fistula in the left arm with good thrill and bruit. EKG and labs were ordered.
--- NOTE | 2021-11-18 14:21 | XRay Report ---
CHEST 1 VIEW 11/18/2021 1:49 PM INDICATION / CLINICAL INFORMATION: Chest pain. COMPARISON: None available. FINDINGS: SUPPORT DEVICES: None. HEART / MEDIASTINUM: No significant abnormality. LUNGS / PLEURA: The left hemidiaphragm remains elevated. There are nonspecific bibasilar opacities. T he lungs are otherwise clear. No significant pleural effusion. No pneumothorax. ADDITIONAL FINDINGS: No significant additional findings. IMPRESSION: 1. Nonspecific bibasilar opacities have developed in the interval and may represent atelectasis or le ss likely pneumonia. No other acute findings. Signer Name: Aaron Cochran MD Signed: 11/18/2021 2:17 PM Workstation Name: [id number]
[2021-11-18 15:46] LABS: Hematocrit 32.8 % (30.3-42.9); Hemoglobin 10.6 gm/dl (10.1-14.3); Mean Corpuscular HGB Conc 32 % (30-34); Mean Corpuscular Volume 98 fl (79-97); Platelet Count 143 K/mm3 (140-440); Red Blood Count 3.35 M/mm3 (3.65-5.03); Red Cell Distribution Width 15.3 % (13.2-15.2)
[2021-11-18 15:50] LABS: Calcium 8.9 mg/dL (8.4-10.2)
[2021-11-18 16:02] LABS: Chol/HDL Ratio 1.51 %
--- NOTE | 2021-11-18 18:55 | Emergency Department Report ---
ED Chest Pain HPI - General Chief Complaint: Chest Pain Stated Complaint: CHEST PAIN Time Seen by Provider: 11/18/21 13:48 Source: patient Mode of arrival: Stretcher Limitations: Physical Limitation - History of Present Illness Initial Comments: Patient was seen as part of the MSE process. Work-up has been initiated. Another provider will follow up and arrange disposition and complete full documentation. Patient was at dialysis. She developed left-sided chest pain. She was taken off of dialysis 90 minutes early and transported here. Per EMS, the patient has done this off and. The daughter states that the patient likes to do this because she does not want to do a full 3-hour treatment. This cannot be verified. Regardless, she is here because of left chest pain. It is just described as "pain." She cannot quantify the pain. She has not noticed any aggravating or alleviating factors. She does not feel short of breath or nauseous. -: Gradual, hour(s) Pain Location: left chest Pain Radiation: none Severity scale (0 -10): 2 Quality: aching Consistency: intermittent Improves With: nothing - Related Data Home Medications Medication Instructions Recorded Confirmed Last Taken Atorvastatin Calcium [Lipitor] 80 mg PO BID 04/25/21 07/20/21 07/18/21 traZODone [Desyrel] 50 mg PO QHS 04/25/21 07/20/21 07/18/21 Previous Rx's Medication Instructions Recorded Last Taken Type Losartan [Cozaar] 50 mg PO QDAY #30 tablet 04/27/21 07/18/21 Rx QUEtiapine [SEROquel] 25 mg PO TID #90 04/27/21 07/18/21 Rx risperiDONE [RisperDAL] 1 mg PO BID #60 04/27/21 07/18/21 Rx Epoetin Warren-Epbx 20,000 [Retacrit] 20,000 unit SUB-Q VERO vial 07/25/21 Unknown Rx Aspirin EC [Halfprin EC] 81 mg PO QDAY #30 tablet. 11/08/21 Unknown Rx hydrALAZINE [Apresoline TAB] 50 mg PO Q8HR #90 tablet 11/08/21 Unknown Rx Allergies Allergy/AdvReac Type Severity Reaction Status Date / Time No Known Allergies Allergy Unverified 04/25/21 19:02 Heart Score - HEART Score History: Slightly suspicious EKG: Normal Age: 45-65 Risk factors: 1-2 risk factors Troponin: 1-3x normal limit HEART Score: 3 - EKG Read Time Time EKG Completed: 14:15 EKG Read Time: 14:16 - Critical Actions Critical Actions: 0-3 pts:0.9-1.7%risk of adverse cardiac event.Candidate for discharge ED Review of Systems ROS: Stated complaint: CHEST PAIN Other details as noted in HPI Constitutional: denies: chills, fever Eyes: denies: eye pain, eye discharge, vision change ENT: denies: ear pain, throat pain Respiratory: denies: cough, shortness of breath, wheezing Cardiovascular: denies: chest pain, palpitations Endocrine: no symptoms reported Gastrointestinal: denies: abdominal pain, nausea, diarrhea Genitourinary: denies: urgency, dysuria, discharge Musculoskeletal: denies: back pain, joint swelling, arthralgia Skin: denies: rash, lesions Neurological: denies: headache, weakness, paresthesias Psychiatric: denies: anxiety, depression Hematological/Lymphatic: denies: easy bleeding, easy bruising ED Past Medical Hx - Past Medical History Hx Hypertension: Yes Hx Congestive Heart Failure: No Hx Diabetes: Yes Hx Renal Disease: Yes Hx Psychiatric Treatment: Yes (bipolar, schizophrenia) Hx Asthma: No Hx COPD: No Hx Dementia: Yes Additional medical history: blindness - Surgical History Additional Surgical History: fistula L arm - Social History Smoking Status: Never Smoker - Medications Home Medications: Home Medications Medication Instructions Recorded Confirmed Last Taken Type Atorvastatin Calcium [Lipitor] 80 mg PO BID 04/25/21 07/20/21 07/18/21 History traZODone [Desyrel] 50 mg PO QHS 04/25/21 07/20/21 07/18/21 History Losartan [Cozaar] 50 mg PO QDAY #30 tablet 04/27/21 07/20/21 07/18/21 Rx QUEtiapine [SEROquel] 25 mg PO TID #90 04/27/21 07/20/21 07/18/21 Rx risperiDONE [RisperDAL] 1 mg PO BID #60 04/27/21 07/20/21 07/18/21 Rx Epoetin Warren-Epbx 20,000 [Retacrit] 20,000 unit SUB-Q VERO vial 07/25/21 Unknown Rx Aspirin EC [Halfprin EC] 81 mg PO QDAY #30 tablet. 11/08/21 Unknown Rx hydrALAZINE [Apresoline TAB] 50 mg PO Q8HR #90 tablet 11/08/21 Unknown Rx ED Physical Exam - General Limitations: Physical Limitation General appearance: alert, in no apparent distress, other (legally blind ) - Head Head exam: Present: atraumatic, normocephalic - Eye Eye exam: Present: other (legally blind ) - ENT ENT exam: Present: mucous membranes moist - Neck Neck exam: Present: normal inspection - Respiratory Respiratory exam: Present: normal lung sounds bilaterally. Absent: respiratory distress - Cardiovascular Cardiovascular Exam: Present: regular rate, normal rhythm. Absent: systolic murmur, diastolic murmur, rubs, gallop - GI/Abdominal GI/Abdominal exam: Present: soft, normal bowel sounds - Extremities Exam Extremities exam: Present: normal inspection - Back Exam Back exam: Present: normal inspection - Neurological Exam Neurological exam: Present: alert, oriented X3 - Psychiatric Psychiatric exam: Present: normal affect, normal mood - Skin Skin exam: Present: warm, dry, intact, normal color. Absent: rash ED Course Vital Signs 11/18/21 11/18/21 11/18/21 13:42 14:25 14:31 Pulse Rate 65 59 L 62 Respiratory 16 8 L 7 L Rate Blood Pressure 164/57 Blood Pressure 142/72 [Right] O2 Sat by Pulse 99 100 100 Oximetry 11/18/21 11/18/21 14:45 15:01 Pulse Rate 57 L 56 L Respiratory 12 8 L Rate Blood Pressure 164/57 180/91 Blood Pressure [Right] O2 Sat by Pulse 100 100 Oximetry - Reevaluation(s) Reevaluation #1: 11/18/21 18:54 work up showed slightly elevated trop, les than before, ekg unremarkable , vss no distres ED Medical Decision Making - Lab Data Result diagrams: 11/18/21 14:48 11/18/21 14:48 Critical care attestation.: If time is entered above; I have spent that time in minutes in the direct care of this critically ill patient, excluding procedure time. ED Disposition Clinical Impression: Chest pain, ESRD needing dialysis Disposition: 01 HOME / SELF CARE / HOMELESS Is pt being admited?: No Does the pt Need Aspirin: No Condition: Stable Instructions: Nonspecific Chest Pain, Adult Referrals: GERMÁN KNAPP MD [Primary Care Provider] - 3-5 Days
[2021-11-18 22:07] VITALS: BP 156/69
--- NOTE | 2021-11-19 09:38 | Electrocardiograph Report ---
[facility] Test Date: 2021-11-18 Test Time: 14:16:19 Pat Name: ALEX PUGH Department: Room: Gender: F Lab Specialist: CONCRETE POLISHER : 1955 Requested By: TY WINCHESTER Order Number: [id number] Reading MD: Louise Wyatt Measurements Intervals [place] Rate: 59 P: 54 NE: 183 QRS: 44 QRSD: 88 T: 57 QT: 452 QTc: 447 Interpretive Statements Sinus bradycardia Compared to ECG 07/22/2021 12:38:03 Sinus rhythm no longer present Atrial premature complex(es) no longer present Myocardial infarct finding no longer present Electronically Signed On 11-19-2021 9:38:14 EST by Louise Wyatt
--- NOTE | 2021-11-19 09:39 | Electrocardiograph Report ---
[facility] Test Date: 2021-11-18 Test Time: 16:34:43 Pat Name: ALEX PUGH Department: Room: Gender: F Political Science Instructor: F : 1955 Requested By: TRAVON ANDREWS Order Number: [id number] Reading MD: Louise Wyatt Measurements Intervals [place] Rate: 60 P: 59 NC: 80 QRS: 45 QRSD: 88 T: 66 QT: 443 QTc: 445 Interpretive Statements Sinus rhythm Consider anteroseptal infarct Compared to ECG 11/18/2021 14:16:19 Myocardial infarct finding now present Sinus bradycardia no longer present Electronically Signed On 11-19-2021 9:39:01 EST by Louise Wyatt
--- NOTE | 2021-11-19 09:39 | Electrocardiograph Report ---
[facility] Test Date: 2021-11-18 Test Time: 18:24:17 Pat Name: ALEX PUGH Department: Room: Gender: F Tile Installer: BETZAIDA : 1955 Requested By: TRAVON ANDREWS Order Number: [id number] Reading MD: Louise Wyatt Measurements Intervals [place] Rate: 67 P: 33 UT: 177 QRS: 31 QRSD: 91 T: 50 QT: 434 QTc: 448 Interpretive Statements Sinus rhythm Atrial premature complexes in couplets Consider anteroseptal infarct Compared to ECG 11/18/2021 16:34:43 Atrial premature complex(es) now present Myocardial infarct finding still present Electronically Signed On 11-19-2021 9:39:07 EST by Louise Wyatt
== END 2021-11-18 22:03 | disposition home or self-care (01) ==
LOC: ED 13:38
DX: R07.89 Other chest pain (principal); I12.0 Hypertensive chronic kidney disease with stage 5 chronic kidney disease or end stage renal disease; E11.22 Type 2 diabetes mellitus with diabetic chronic kidney disease; N18.6 End stage renal disease; Z99.2 Dependence on renal dialysis; F03.90 Unspecified dementia, unspecified severity, without behavioral disturbance, psychotic disturbance, mood disturbance, and anxiety
CPT/HCPCS: 36415; 71045; 80048; 80061; 84484; 85027; 93005; 93010; 99284